=== PATIENT | female | born 1980 | race Caucasian/White ===

== ENCOUNTER → 2016-05-28 | Outpatient (CLI) | payer OTHER ==
[~2016-05-28] MED LIST: DICLEGIS1 TCP PO; DILAUDID2 MG PO; HYDROMORPHONE2 MG PO; IRON TABLETS325 MG PO; PRENATAL PLUS1 TA1 PO; ZANTAC 150150 MG PO
== END ==
LOC: LAB 13:06
DX: Z34.80 Encounter for supervision of other normal pregnancy, unspecified trimester (principal)

== ENCOUNTER 2016-06-19 02:20 | Inpatient (IN) | payer OTHER ==
[~2016-06-19] VITALS: Ht 167.6 cm; Wt 80.7 kg
[~2016-06-19 02:20] MED LIST changes: -HYDROMORPHONE2 MG PO
[2016-06-19 06:01] VITALS: BP 108/68
[2016-06-19 06:26] LABS: HEMOGLOBIN 13.2 g/dL (12.2-16.2); LYMPH # 1.6 K/mm3 (0.7-4.5); LYMPH % 26.7 % (10-50.0)
[2016-06-19 07:16] LABS: ABO BLOOD TYPE A; RH BLOOD TYPE POSITIVE
--- NOTE | 2016-06-19 08:29 | Operative Note ---
Procedure/Operative Record Procedure Date of procedure: 06/19/16 Pre-Op Dx: Term , previous section, desire for sterilization Post-Op Dx: Term , previous section, desire for sterilization Procedure performed: Repeat lower segment transverse section, bilateral salpingectomy Surgeon: Dr. John Barahona Patented Hogshead Assembler(s): Dayami Mendoza Anesthesia: Rj Carr spinal EBL (ml): 600 Clinical note: She is a 36-year-old 3 para 1 aborta 1 who was 39+ weeks gestational age. She's had a previous section. She was offered repeat lower segment transverse section at term. She also expresses desire for sterilization. The risks and benefits as well as the irreversibility of bilateral stopping injected a were discussed with the patient prior surgery. Operative findings: She delivered a live-born male child at 7:40 AM on the morning of June 19, 2016. The baby had Apgars of 8 at 1 minute and 9 at 5 minutes. PH was 7.28. Ovaries and tubes appeared normal. Operative note: She was taken to the operating room where spinal anesthesia was found be adequate. She was prepped and draped in normal sterile fashion in the supine position with a leftward tilt. A Kevin catheter was in the bladder. A Pfannenstiel skin incision was made with knife. I made a small wider crescentic incision in order to remove some keloid scar. Using cautery I then removed this scar that was approximately 5 mm wide. This incision was then carried through to the underlying layer of fascia with cautery. The fascia was opened in the midline with cautery and extended laterally using Mata scissors. [place] clamps were applied to the superior aspect of the fascial incision which was tented up and the underlying rectus muscles dissected off using cautery. The [place] clamps were then applied to the inferior aspect of the fascial incision which in a similar fashion was tented up and the underlying rectus muscles dissected off using cautery. The rectus muscles were then in the midline, the peritoneum identified, and entered sharply with Metzenbaum scissors. This incision was then extended superiorly and inferiorly with cautery. We had good visualization of the bladder inferiorly. The bladder peritoneum was then opened in the midline and extended laterally using Metzenbaum scissors. A bladder flap was created digitally. The lower blade of the [place] was inserted so as to push the bladder out of the way. Transverse incision was made through the uterine muscle to the amnion. This incision was then extended laterally using fingers traction. The amnion was entered sharply with knife. Clear fluid was seen to flow. The 's head was then delivered atraumatically. This was followed by the anterior shoulder and the rest of the infant's body atraumatically. The oropharynx and nasopharynx were bulb suctioned. The was then handed off to Dr. Chambers who assigned Apgars of 8 at 1 minute and 9 at 5 minutes. We then obtained cord blood as well as cord pH. The pH was 7.28. Using gentle traction on the cord and countertraction on the fundus I was able to easily deliver the placenta intact. It had a normal three-vessel cord. The uterus was then cleared of clots and debris and exteriorized from the abdominal cavity. The uterine incision was then closed using running 0 Vicryl suture in a locked fashion. A second layer of the same suture was used to imbricate the first layer. The bladder peritoneum was then closed using running 2-0 Vicryl suture in a locked fashion. I then grasped the patient's RIGHT tube at its fimbriated end and using the wide part of the blade of the cautery I cauterized along the meso salpinx. At the cornual and I clamped across the tube and remove the tube. This was tied with a Vicryl tie. This was similar performed on the patient's LEFT side. Tubes were sent to pathology. The gutters and cul-de-sac were then cleared of clots and debris and the uterus was returned the abdominal cavity. Once again hemostasis was assured. I then placed a large piece of Interceed along the uterine incision. The peritoneum was grasped with Felicita clamps and closed using running 2-0 Vicryl suture. The rectus muscles were then reapproximated using running 0 Vicryl suture. The fascia was closed using running #1 Vicryl suture. The subcutaneous tissues were then irrigated with warm water followed by closure Sarah's fascia using running 2-0 Monocryl suture. The skin was closed with renee. Sterile dressings were applied. She tolerated the procedure well and was taken to the recovery room in excellent condition. All sponges minute and needle counts were correct. Estimate a blood loss was approximately 600 mL. Conplications: None Specimens: Products of conception and fallopian tubes at [id number]
[2016-06-19 11:16] LABS: URINE BILIRUBIN - DIPSTICK NEGATIVE (NEG); URINE BLOOD 1+ (NEG)
[2016-06-19 13:26] VITALS: BP 131/56
[2016-06-19 20:09] VITALS: BP 115/62
[2016-06-20 05:39] LABS: HEMOGLOBIN 11.8 g/dL (12.2-16.2)
--- NOTE | 2016-06-20 09:55 | ACUTE CARE PROGRESS NOTE (QUA) ---
Progress Notes Subjective Date 06/20/16 Time 0953 Note She is doing well this morning she is eating and drinking and ambulating. She is breast-feeding. She has been having some difficulty with urination. She is not able to urinate. She has had an in out catheter twice. I suspect she has some urinary retention as result of her narcotics. Patient/family reports: feeling better, no complaints Objective Findings Last VS-Temp:97.9 B/P:115/62 Pulse:81 Resp:18 SaO2:99 ROOM AIR Last weight lbs:178 oz:0 K.740 Method:Stated Laboratory Tests 06/20/16 0435: Hgb 11.8 L, Hct 35.1 L Exam General appearance: normal appearance, alert, awake, no acute distress Reviewed: vital signs, lab results Assessment/Plan Problem List 1. Previous section 2. Delivered by section Patient condition Improving, Stable Plan: continue current care This inpt stay is expected to cross 2 MNs from start of care Yes Comments: She is doing very well and her pain is much better controlled. We will continue to in out catheter for now. We will plan to send her home in 48 hours. at 0955
[2016-06-20 19:52] VITALS: BP 93/57
[2016-06-21 08:20] VITALS: BP 115/59
--- NOTE | 2016-06-21 10:45 | ACUTE CARE PROGRESS NOTE (QUA) ---
Progress Notes Subjective Date 06/21/16 Time 1044 Note She is doing well today. Her pain is much better controlled. Her lochia is normal. She is breast-feeding. She has been unable to void since surgery. She did have a catheter overnight. Patient/family reports: feeling better, no complaints Objective Findings Last VS-Temp:98.1 B/P:93/57 Pulse:88 Resp:18 SaO2:99 ROOM AIR Last weight lbs:178 oz:0 K.740 Method:Stated Exam General appearance: normal appearance, alert, awake, no acute distress Reviewed: vital signs, lab results Assessment/Plan Problem List 1. Previous section 2. Delivered by section Patient condition Improving, Stable Plan: continue current care This inpt stay is expected to cross 2 MNs from start of care Yes Comments: We will remove her catheter this morning and see how she does with voiding. We will plan to send her home tomorrow. at 1043
--- NOTE | 2016-06-22 07:17 | PHARMACY CLINIC NOTE ---
Patient Demographics Patient Demographics Admission date: 06/19/16 Date: 06/22/16 Time: 716 Allergies Coded Allergies: codeine (Intermediate, NA-NAUSEA/VOMITING 06/19/16) HEIGHT- FT: 5 IN: 6.00 K.740 VTE General Information Disclaimer The following section includes nursing documentation that has been pulled in for pharmacy review. VTE prophylaxis NQF [id number] VTE prophylaxis ordered? Yes Type of prophylaxis/treatment: ICD at 0717
[2016-06-22 07:40] VITALS: BP 124/82
--- NOTE | 2016-06-22 09:37 | ACUTE CARE PROGRESS NOTE (QUA) ---
Progress Notes Subjective Date 06/22/16 Time 0936 Note She is doing well this morning. She is eating and drinking and ambulating. Her lochia is normal. She is breast-feeding. She was finally able to void on her own. Patient/family reports: feeling better, no complaints Objective Findings Last VS-Temp:98.2 B/P:115/59 Pulse:86 Resp:18 SaO2:99 ROOM AIR Last weight lbs:178 oz:0 K.740 Method:Stated Exam General appearance: normal appearance, alert, awake, no acute distress Reviewed: vital signs, lab results Assessment/Plan Problem List 1. Previous section 2. Delivered by section Patient condition Improving, Stable Plan: continue current care, initiate discharge plan This inpt stay is expected to cross 2 MNs from start of care Yes Comments: She is doing very well this morning. We'll plan to send her home. at 0981
--- NOTE | 2016-06-22 09:40 | Discharge Summary ---
Discharge Summary Admission date: 06/19/16 Discharge date: 06/22/16 Discharge diagnoses: Term , previous section, desire for sterilization Clinical note: She is a 36-year-old 3 para 2 aborta 1 who was 39 weeks gestational age. She's had a previous section and as result of that was offered repeat lower segment transverse section at term. She also is breast desire for sterilization and had a bilateral salpingectomy at the time of her . Course in hospital: On June 19, 2016 she underwent a repeat lower segment transverse section and bilateral salpingectomy. She delivered a live-born male child at 7: 48 AM. The baby weighed 8 lbs. 12 oz. and was 20 inches long. He had Apgars of 8 at 1 minute and 9 at 5 minutes. She has done well postoperatively and has remained afebrile throughout her hospitalization. She is eating and drinking and ambulating. She is breast-feeding. Her lochia is normal. She did have some difficulty voiding for the first couple of days but has since had a catheter removed and she is voiding on her own. Her pain is well-controlled. Her incision is clean and dry. She has a positive blood, she is rubella immune and was group B streptococcus negative. Her tip banding machine operator is Dr. Chambers. Laboratory Tests 06/20/16 0435: Hgb 11.8 L, Hct 35.1 L Plans for ongoing care: She is discharged home to follow-up with me in approximately 2 weeks' time. Discharge medications She will continue with her vitamins and iron. She was given a prescription for hydromorphone 4 mg number 30 tablets. She will take ibuprofen [id number]. DC/follow-up instructions She was given the usual instructions with respect to limiting her activity, driving and sexual activity. She was given instructions with respect to wound care. Condition at discharge Stable and improved at 0940
--- NOTE | 2016-06-22 09:40 | Discharge Summary ---
Discharge Summary Admission date: 06/19/16 Discharge date: 06/22/16 Discharge diagnoses: Term , previous section, desire for sterilization Clinical note: She is a 36-year-old 3 para 2 aborta 1 who was 39 weeks gestational age. She's had a previous section and as result of that was offered repeat lower segment transverse section at term. She also is breast desire for sterilization and had a bilateral salpingectomy at the time of her . Course in hospital: On June 19, 2016 she underwent a repeat lower segment transverse section and bilateral salpingectomy. She delivered a live-born male child at 7: 48 AM. The baby weighed 8 lbs. 12 oz. and was 20 inches long. He had Apgars of 8 at 1 minute and 9 at 5 minutes. She has done well postoperatively and has remained afebrile throughout her hospitalization. She is eating and drinking and ambulating. She is breast-feeding. Her lochia is normal. She did have some difficulty voiding for the first couple of days but has since had a catheter removed and she is voiding on her own. Her pain is well-controlled. Her incision is clean and dry. She has a positive blood, she is rubella immune and was group B streptococcus negative. Her welder apprentice arc is Dr. Chambers. Laboratory Tests 06/20/16 0435: Hgb 11.8 L, Hct 35.1 L Plans for ongoing care: She is discharged home to follow-up with me in approximately 2 weeks' time. Discharge medications She will continue with her vitamins and iron. She was given a prescription for hydromorphone 4 mg number 30 tablets. She will take ibuprofen [id number]. DC/follow-up instructions She was given the usual instructions with respect to limiting her activity, driving and sexual activity. She was given instructions with respect to wound care. Condition at discharge Stable and improved at 0940
[2016-06-22] MEDS ORDERED: HYDROMORPHONE2 MG PO (09:42)
== END 2016-06-22 12:45 | disposition home or self-care (01) | DRG 766 ==
LOC: OB 02:20 → SDC 06-22 07:30 → EDSTATUS 06-22 07:30 → OB 06-22 07:30
PROVIDERS: Nurse Practitioner Obstetrics & Gynecology
PROC: 0UT70ZZ Resection of Bilateral Fallopian Tubes, Open Approach (ICD-10-PCS; principal; 2016-06-19 07:30)
PROC: 10D00Z1 Extraction of Products of Conception, Low, Open Approach (ICD-10-PCS; principal; 2016-06-19 07:30)
DX: O34.211 Maternal care for low transverse scar from previous cesarean delivery (principal); N85.8 Other specified noninflammatory disorders of uterus; O65.5 Obstructed labor due to abnormality of maternal pelvic organs; Z3A.39 39 weeks gestation of pregnancy; Z37.0 Single live birth; Z30.2 Encounter for sterilization
CPT/HCPCS: J2405

== ENCOUNTER → 2016-12-23 | Outpatient (CLI) | payer OTHER ==
[~2016-12-23] MED LIST changes: +HYDROMORPHONE2 MG PO
--- NOTE | 2016-12-24 05:26 | RADIOLOGY REPORT PS360 ---
[id number] (THUMB)-3 VIEWS HISTORY: Pain of the thumb INJURY OF ULNAR COLLATERAL LIGAMENT ORDERING PHYSICIAN: LANDRY ALSTON PATIENT AGE: 36 years COMPARISON: None FINDINGS: AP views are obtained of both bones with stress on extension. No abnormal subluxation is evident. There is slight increase in the dorsal extension of the left thumb compared to the right but no subluxation. IMPRESSION: No abnormal subluxation apparent
== END ==
LOC: RAD 11:02
DX: S66.901A Unspecified injury of unspecified muscle, fascia and tendon at wrist and hand level, right hand, initial encounter (principal)